=== PATIENT | male | born 1945 | race Caucasian/White ===

== ENCOUNTER → 2020-01-13 08:20 | Outpatient (CLI) | payer MEDICARE, OTHER, SELFPAY ==
[2020-01-14 21:05] LABS: COVID19 Sendout Not Detected (Not Detect)
== END ==
PROVIDERS: Visit Provider Nurse Practitioner
DX: Z01.812 Encounter for preprocedural laboratory examination (principal)
CPT/HCPCS: 87635

== ENCOUNTER 2020-01-16 11:18 | Inpatient (IN) | payer MEDICARE, OTHER, SELFPAY ==
[2020-01-11 10:00] VITALS: BMI 25.4
[2020-01-16] VITALS (15 sets, daily range): BP systolic 92–130; BP diastolic 52–80; PULSE 71–84; RESP 10–20; TEMP 36.3–36.6; O2SAT 90–97; BMI 25.4; BMI 25.3
--- NOTE | 2020-01-16 | PATH_ITS ---
[facility] Accession Number: [id number] . 01 Material submitted: . PART A: lymph node - RIGHT PELVIC LYMPH NODE PART B: lymph node - LEFT PELVIC LYMPH NODE PART C: prostate - PROSTATE WITH ATTACHED SEMINAL VESICLES . 02 Diagnosis: A. Right Pelvic Lymph Nodes, Excision: Seven lymph nodes negative for carcinoma. . B. Left Pelvic Lymph Nodes, Excision: Three lymph nodes negative for carcinoma. . C. Prostate with Attached Seminal Vesicles, Radical Prostatectomy: Prostatic adenocarcinoma; see cancer case summary. . CANCER CASE SUMMARY - PROSTATE GLAND Procedure: Radical prostatectomy. Prostate size: Weight: 34 grams. Size: 4.0 x 3.5 x 3.3 cm. Histologic type: Acinar adenocarcinoma. Histologic grade: Grade group 1 (Isatu score 3+3=6). Tumor quantitation: Estimated percentage of prostate involved by tumor: 5%. Tumor size (dominant nodule): 18 mm. Extraprostatic extension: Not identified. Urinary bladder neck invasion: Not identified. Seminal vesicle invasion: Not identified. Lymphovascular invasion: Not identified. Perineural invasion: Present. Margins: Uninvolved by invasive carcinoma. Treatment effect: No known presurgical therapy. Regional lymph nodes: Number of lymph nodes involved: 0. Number of lymph nodes exmained: 10. Pathologic stage classification (pTNM, AJCC 8th Edition): Primary tumor: pT2 Regional lymph nodes: pN0. Additional pathologic findings: High-grade prostatic intraepithelial neoplasia (PIN). [facility] 01/20/2020 1516 Local . 02 Electronically signed: . Alfonso Gibson MD, PhD, Pathologist NPI- [id number] . 01 Gross description: . Specimen A is received in formalin, labeled with patient identification and R pelvic lymph node. It consists of a yellow-guajardo and lobulated soft tissue piece measuring 4.0 x 4.0 x 2.2 cm. There are 12 lymph node candidates ranging from 0.4 to 1.7 cm in greatest dimension. The entire lymph node candidates are submitted in five cassettes. . Summary of sections: A1-A2 - four intact lymph node candidates in each, four pieces. A3 - two intact lymph node candidates, two pieces. A4-A5 - one sectioned lymph node candidate in each, four pieces each. . Specimen B is received in formalin, labeled with patient identification and L pelvic lymph node. It consists of a 4.0 x 2.0 x 1.7 cm yellow-guajardo and lobulated soft tissue piece. There are four lymph node candidates ranging from 1.0 to 3.3 cm in greatest dimension. The entire lymph node candidates are submitted in five cassettes. . Summary of sections: B1 - two intact lymph node candidates, two pieces. B2-B4 - one sectioned lymph node candidate, together, two pieces in B2 and B3, three pieces in B4. B5- one sectioned lymph node candidate, four pieces. . Specimen C is received in formalin, labeled with patient identification and prostate with attached seminal vesicles. It consists of a 34-gram prostate (4.0 cm from left to right, 3.5 cm from anterior to posterior, and 3.3 cm from superior to inferior) with bilateral seminal vesicles (left: 2.5 x 1.0 x 0.5 cm; right: 3.2 x 1.0 x 0.9 cm) and bilateral vasa deferentia (ranging from 2.5 to 3.0 cm in length and 0.6 cm in average diameter). The capsule is yellow-guajardo and distorted. The specimen is inked as follows: anterior midline-orange, posterior midline-yellow, right-black, left-blue. After removal of the distal and proximal prostatic urethral margins. The prostate is sectioned into seven slices from the apex to base. The cutting surface is diffuse yellow-guajardo spongy and nodular. A 0.8 x 0.6 x 0.4 cm cavity with multiple black and irregular calculi is present on the right/posterior aspect, involving on slides 5 and 6. No discrete masses are identified grossly. The prostate gland is entirely submitted. The entire prostate and medical detail representative sections of seminal vessicles are submitted in 30 cassettes. . Summary of sections: C1 - right seminal vesicle and vas deferens, two pieces. C2 - left seminal vesicle and vas deferens, two pieces. C3 - right apex margin, three pieces. C4 - left apex margin, three pieces. C5 - right base margin, four pieces. C6 - left base margin, three pieces. C7-C10 - full-thickness prostate of slices 1 and 2, bisected, one piece each. C11-C30 - full-thickness prostate sections of slices 3 to 7, quadrisected each slice, one piece each. (TN:[id number]) /MRV 01/20/2020 [facility] Local . 02 Pathologist provided ICD-10: C61 . 02 CPT . 153345, [id number], [id number] Performed at: 01 [facility] [address] [facility], [place], [place] [id number] MD Ed Veliz MD Phone: [phone] Performed at: 02 [facility] [place] [address] [place], [place] [id number] MD Lisa Zurita MD Phone: [phone]
[2020-01-16 12:13] LABS: Hematocrit 35.7 % (41-53); Hemoglobin 12.2 g/dL (13.5-17.5); Mean Corpuscular HGB Conc 34.1 % (30-36); Mean Corpuscular Hemoglobin 31.9 PG (26-34); Mean Corpuscular Volume 93.7 fL (80-100); Platelet Count 162 X10^3/uL (150-400); Red Blood Cell Count 3.81 X10^6/uL (4.5-5.9); Red Cell Distribution Width 13.2 % (11.6-14.8); White Blood Cell Count 3.3 X10^3/uL (4.5-11.0)
[2020-01-16] MEDS: LACTATED RINGERS 1,000 ML 42 ML IV ×2 (12:15→15:01)
--- NOTE | 2020-01-16 12:41 | PM.PREOP ---
Pre-operative Note Interval Note History & Physical reviewed/Exam performed by Physician: Yes Changes to H&P: No
[2020-01-16] MEDS: CEFAZOLIN 2 GM/100 ML FROZ.PIGGY IV ×2 (13:00→17:45)
[2020-01-16] MEDS: ACETAMINOPHEN IV 1,000 MG/100 ML VIAL 400 MG IV (13:30)
--- NOTE | 2020-01-16 13:59 | SUR.OPER ---
Supine on padded OR bed, head on pillow, arms secured on padded arm boards at <90 degrees abduction, legs uncrossed, safety belt at thigh, tape over blanket over lower legs.
[2020-01-16] MEDS: BUPIVACAINE LIPOSOME 266 MG/20 ML VIAL INJ (14:10)
[2020-01-16] MEDS: SODIUM CHLORIDE 0.9% FLUSH 10 ML IV (15:13)
--- NOTE | 2020-01-16 15:30 | P.OP_ITS ---
Operative Date/Time/Diagnoses Date of procedure: 01/16/20 Time of procedure: 15:31 Pre-op diagnosis: Carcinoma of the prostate Post-op diagnosis: same Procedure & Clinicians Procedure: Radical retropubic prostatectomy and bilateral pelvic lymphadenectomy Same procedure as scheduled: Yes Indications: Adenocarcinoma the prostate Surgeon: Michoacano Garcia [employer] Operator: Sarah Welsh Click Yes if Unassisted: No Anesthesia Type: General, Spinal (Duramorph spinal) and Local (1.33% Exparel) Operative Notes Findings: Normal tissue planes. Lymph node packets grossly normal. No physical or palpable evidence of extracapsular extension. Closure Type: primary Specimen(s): other (1. Right pelvic lymph nodes 2. left pelvic lymph nodes. 3. Prostate with attached seminal vesicles.) Applied: catheter (18. Togolese Osorio) and drain(s) Estimated Blood Loss (mL): 200 Blood products transfused: none Tourniquet time (min): 0 Procedure in detail: Patient was positioned supine and was administered general anesthesia after successful placement of Duramorph spinal. The abdomen genitalia and groin were then prepped and draped in sterile fashion. A midline infraumbilical incision was then conducted with sharp cautery and blunt technique. The extraperitoneal pelvic space was entered and the anterior lateral pelvic sidewalls were cleared and exposed using blunt technique. Bilateral pelvic lymph node dissection was then conducted using the same steps a maneuvers as follows: The abdomen tissue over the external iliac vein was divided along its length using blunt and cautery technique care was taken to identify the obturator nerve artery and vein during the dissection. The boundaries of the aleja packet were then established and were dissected from its fossa using blunt and cautery technique with the LigaSure Impact device. Each, the right and the left pelvic lymph node packet were then handed off the field, labeled as to the side of procurement and submitted to pathology for routine gross and microscopic examination. The endopelvic fascia was then divided on either side of the prostate. The puboprostatic ligaments were identified and these were divided using the LigaSure Impact device. Meticulous incisions were made in the fascia overlying the lateral surface of the prostate, longitudinally. This fascial envelope was then gently rolled posteriorly using blunt technique in an attempt to preserve the cavernous nerves. Next, the dorsal venous complex was ligated using the LigaSure Impact device. Hemostasis was satisfactory. The urethra was then identified between the prostatic apex and the pelvic floor. The urethra was then carefully isolated using blunt technique and was divided sharply just distal to the prostatic apex. The Osorio catheter was then brought into the operative space and the rectal urethralis attachments were carefully divided using blunt and cautery technique. A plane was then developed between the posterior prostate and the rectal wall anteriorly. The posterior lateral vascular pedicles of the prostate were then carefully isolated successively using plastic hemo lock clips were necessary with sharp division. Now with the prostate and seminal vesicles elevated and rotated superiorly and anteriorly the seminal vesicles and ampulla of the vas deferens were visualized and accessed. Denonvies fascia was then divided horizontally. The ampulla of the vas was isolated on each side, large hemoclips were applied, and were transected. The seminal vesicles were then dissected from the fossa using blunt technique and application of medium hemo lock clips were indicated for for hemostasis and sharp division. A plane was then developed between the bladder neck and prostatic base using blunt and cautery technique. The mucosa of the bladder neck was then divided. The mucosa of the bladder was then effaced circumferentially with interrupted 4 0 Monocryl suture creating a neobladder neck. The Nick sound was then passed into the urethra and positioned at the exposed portion of the urethra above the pelvic floor. Using 2 0 Monocryl suture, interrupted anastomotic sutures were placed at the 2, 4, 6, 10, positions. The same sutures were then brought through the neobladder neck at the same locations. An 18 Togolese silicone Osorio catheter was then advanced through the penile meatus into the operative field and then advanced into the bladder via the neobladder neck. The balloon was then inflated to 15 cc. Gentle traction was then applied to the catheter and the anastomotic sutures were then tied down successively, thus completing the vesicourethral anastomosis. The Osorio catheter was then irrigated clear and placed to gravity drainage. A 15 Togolese Anmol drain was then brought through the abdominal wall through a separate stab incision to the right of the midline incision. A diluted solution of Exparel was then utilized to infiltrate the drain site, the midline abdominal fascia, and the midline abdominal skin. The fascia was then closed with running 0 PDS. The subcutaneous layer was reapproximated using 2 0 Vicryl in a running fashion. Finally the skin was reapproximated using a running subcuticular 4 0 M onocryl. The incision line in the drain site were then dressed with tailored Telfa and op site dressing. The Anmol drain was then placed to bulb self suction. The patient was then awakened, transferred to [facility], and transferred to recovery in stable condition. Complications: none Post-operative Condition: stable Disposition: PACU Plan for aftercare: Acute Care
[2020-01-16 16:10] LABS: Bacteria Urine None Seen; WBC Urine None Seen (0-5/HPF)
[2020-01-16 16:12] LABS: Appearance Urine UA CLEAR; Bilirubin Urine UA NEGATIVE (NEGATIVE); Color Urine UA YELLOW; Glucose Urine UA NEGATIVE (Negative); Ketones Urine UA 1+ (NEGATIVE); Leukocyte Esterase Urine UA NEGATIVE (NEGATIVE); Nitrite Urine UA NEGATIVE (Negative); Occult Blood Urine UA 1+ (Negative); Protein Urine UA NEGATIVE (Negative); Specific Gravity Urine UA 1.025 (1.000-1.035); Urobilinogen Urine UA 0.2 E.U./dL (0.2)
[2020-01-16 16:17] LABS: Culture Indicated Urine Cult Not Indicated; Mucus Urine 2+ (Negative); RBC Urine 1-5/HPF (0-5/HPF)
[2020-01-16] MEDS: LACTATED RINGERS 1,000 ML 125 ML IV (17:44)
[2020-01-16 17:48] LABS: Hematocrit 32.6 % (41-53); Hemoglobin 11.2 g/dL (13.5-17.5)
[2020-01-16] MEDS: diphenhydrAMINE 25 MG TABLET PO (21:02)
[2020-01-16] MEDS: ACETAMINOPHEN 325 MG TABLET PO (21:02)
[2020-01-17] VITALS (8 sets, daily range): BP systolic 105–125; BP diastolic 56–69; PULSE 67–78; RESP 15–18; TEMP 36–37.2; O2SAT 96–100
[2020-01-17] MEDS: LACTATED RINGERS 1,000 ML 125 ML IV (02:40)
--- NOTE | 2020-01-17 07:40 | P.PN_ITS ---
Subjective Subjective Date Patient Seen: 01/17/20 Time Patient Seen: 07:40 Interval history: He reports and overall uneventful night without complaint. He denies pain, nausea, or vomiting. He tolerated a general diet for dinner. Exam Vital Signs (past 8 hours): - 01/17/20 00:22 01/17/20 04:20 01/17/20 07:20 Temperature 97.6 F 97.6 F Pulse Rate 67 68 68 Respiratory Rate 18 18 18 Blood Pressure 109/65 105/56 L Pulse Oximetry 97 97 97 Oxygen Delivery Method Room Air Oxygen Flow Rate 0 Narrative Exam Narrative: He is awake, alert, sitting upright in bed and in no distress. Chest-equal and nonlabored expansion bilaterally. Abdomen-bowel sounds are active. Nondistended. Dressing and drain intact. Scant serosanguineous SHANDA drainage. Genitalia-no ecchymosis or edema. Osorio indwelling with clear outflow. Extremities-SCDs in place. No pallor edema or cyanosis appreciated. Objective Labs Result Diagrams: 01/16/20 17:33 Labs: Laboratory Results - last 24 hr 01/16/20 01/16/20 01/16/20 12:10 12:10 14:18 WBC 3.3 L RBC 3.81 L Hgb 12.2 L Hct 35.7 L MCV 93.7 MCH 31.9 MCHC 34.1 RDW 13.2 Plt Count 162 Urine Color Yellow Urine Appearance Clear Urine pH 6.0 Ur Specific [place] 1.025 Urine Protein Negative Urine Glucose (UA) Negative Urine Ketones 1+ H Urine Occult Blood 1+ H Urine Nitrate Negative Urine Bilirubin Negative Urine Urobilinogen 0.2 Ur Leukocyte Esterase Negative Urine RBC 1-5/hpf Urine WBC None seen Urine Bacteria None seen Urine Mucus 2+ H Ur Culture Indicated? Cult not indicated Blood Type A Positive Antibody Screen Negative 01/16/20 17:33 WBC RBC Hgb 11.2 L Hct 32.6 L MCV MCH MCHC RDW Plt Count Urine Color Urine Appearance Urine pH Ur Specific [place] Urine Protein Urine Glucose (UA) Urine Ketones Urine Occult Blood Urine Nitrate Urine Bilirubin Urine Urobilinogen Ur Leukocyte Esterase Urine RBC Urine WBC Urine Bacteria Urine Mucus Ur Culture Indicated? Blood Type Antibody Screen Assessment & Plan Assessment & Plan narrative: Assessment: 1. Stable postoperative day 1. Status post radical prostatectomy. Plan: 1. Increase diet and activity today. 2. Pathology pending. 3. Begin catheter care and use instruction.
[2020-01-17] MEDS: lisinopriL 20 MG TABLET PO (09:22)
[2020-01-17] MEDS: PRAVASTATIN 20 MG TABLET 80 MG PO (09:22)
[2020-01-17] MEDS: ENOXAPARIN 30 MG/0.3 ML SYRINGE SUBCUT (09:23)
--- NOTE | 2020-01-17 09:50 | PC.NURSE ---
Addendum entered by Esthela Hernandez R.N. 01/17/20 12:09: Patient ambulated in the halls. He tried to have a bowel movement but was not successful. Will give him a suppository after lunch time if he is agreeable. Original Note: Assess-Patient is A&Ox3. He denies pain or discomfort. He has two small bandages with lap sites that are both dry, one has a small amount of ss drainage. SHANDA drain to r.mid/lower abdomen with some ss drainage. Osorio catheter putting out pale yellow urine. Patient just ambulated in the halls and is resting in the chair. Dr. Garcia has ordered dulcolax suppositories for patient. He would like to wait for a couple of hours to see if he can have a bowl movemnt. Will given suppository around 1200 if unable to go.
[2020-01-17] MEDS: BISACODYL 10 MG SUPP PR (13:20)
[2020-01-17] MEDS: ACETAMINOPHEN 325 MG TABLET 650 MG PO (18:41)
[2020-01-17] MEDS: ACETAMINOPHEN 325 MG TABLET PO (21:09)
[2020-01-17] MEDS: diphenhydrAMINE 25 MG TABLET PO (21:10)
[2020-01-18 04:10] VITALS: BP 134/73; PULSE 72; RESP 16; TEMP 36.4; O2SAT 98
[2020-01-18 07:55] VITALS: BP 139/72; PULSE 74; RESP 14; TEMP 37.1; O2SAT 96
--- NOTE | 2020-01-18 08:09 | PM.DS.1 ---
History of Present Illness History of Present Illness Date Patient Seen: 01/18/20 Time Patient Seen: 08:09 Chief complaint: [id number] Discharge Providers Provider Date of admission: 01/16/20 11:18 Discharge Date: 01/18/20 Primary care physician: Clinton Tsai MD Discharge provider: Michoacano Garcia MD Summary Hospital Course Discharge Diagnosis: Adenocarcinoma of the prostate Hospital Course: The patient was admitted on the morning of 01/16/2020 and underwent uncomplicated radical retropubic prostatectomy and bilateral pelvic lymphadenectomy under general and Duramorph spinal anesthesia. Postoperative course was unremarkable net he tolerated general diet the evening same day of surgery. Pain control was excellent. He was able to ambulate without assistance beginning early in the 1st postoperative morning. On the morning of 01/18/2020 the patient was stable for discharge. He was provided routine instruction for catheter care and use, activity, hygiene, and driving instructions/restrictions. Discharge prescriptions were explained regarding indications for use, common side effects, precautions, and intake or administration instructions. A postoperative visit will be scheduled for catheter removal on the morning of 01/27/2020. A postoperative appointment with PSA PVR and wound check will be arranged in 6-8 weeks. Pathology is pending at discharge. Status at Discharge Cognitive/behavioral status at discharge: oriented Functional status at discharge: independent ambulation Overall status at discharge: patient is back to baseline Exam Vital Signs (past 8 hours): - 01/18/20 04:10 Temperature 97.5 F L Pulse Rate 72 Respiratory Rate 16 Blood Pressure 134/73 Pulse Oximetry 98 Oxygen Delivery Method Room Air Oxygen Flow Rate 0 Objective Labs Result Diagrams: 01/16/20 17:33 Discharge Plan Discharge Plan Patient Disposition: Home Discharge comment: Call Urology office to schedule postop visit in 6-8 weeks with PSA and PVR. Discharge orders & Medications Prescriptions: New enoxaparin [Lovenox] 30 mg/0.3 mL Syringe 30 mg SUBCUT DAILY Qty: 30 RF: 0 oxycodone 5 mg tablet 5 mg PO Q4H PRN (Reason: pain) Qty: 20 RF: 0 ciprofloxacin HCl 250 mg tablet 250 mg PO Q12H Qty: 6 RF: 0 Continued diphenhydramine-acetaminophen [Acetaminophen PM] 25-500 mg Tablet 1 tab PO BEDTIME RF: 0 pravastatin 80 mg tablet 80 mg PO DAILY RF: 0 lisinopril 20 mg tablet 20 mg PO DAILY RF: 0 Follow up/Referrals: Michoacano Garcia MD [Physician] - Clinton Tsai MD [Primary Care Provider] - Diet/Activity/Treatments Diet: Diet as Tolerated Catheter: 2-way Osorio Catheter comment: Will remove in Urology Office on 01/27/2020- call for appointment Skin/Wound/Dressing Care Report to your healthcare provider any signs of infection, such as:: chills, fever, night sweats, increased pain, unusual drainage and unusual redness Other wound treatment: May shower. Leave incision open to air. Pat dry with clean towel after showering. Visit Report/Discharge Packet Instructions: DI for Radical Prostatectomy, DI for Prescription Opioid Use Stand Alone Forms: Surgery Discharge Discharge Data Primary Care Provider: Clinton Tsai
[2020-01-18] MEDS: PRAVASTATIN 20 MG TABLET 80 MG PO (08:38)
[2020-01-18] MEDS: lisinopriL 20 MG TABLET PO (08:38)
--- NOTE | 2020-01-18 09:20 | CM.DANOTE ---
DCP: Case received, EMR reviewed and met with patient. Introduced self and role. Was able to meet with patient and obtain information regarding patient's baseline activity level prior to hospitalization. DCP assessment completed with information currently available. Patient is a 74 year old male who admitted on 01/15, to the care of the hospitalist/urologist team. PCP: Dr. Tsai. Payer: confirmed: Medicare/[facility]. Patient came to the hospital for a surgical procedure. He had a retropubic prostectomy. Met with patient in his room. He is alert and oriented, and was sitting up in his chair by his bed. He is independent with mobility, and resides in [place] with his spouse, Magdalena. He is to be discharged home today with his catheter, and will follow up at urology office, with removal on 01/26. P: Patient is to be discharged home today. Trinity Nelson RN/[employer]
--- NOTE | 2020-01-18 10:38 | PC.NURSE ---
Patient will be discharging home today. Will do leg bag teaching and also take out his SHANDA drain. will be here and we will also do some lovenox teaching as he will be going home with this. Osorio is patent with clear yellow urine. Patient denies pain and has had a small bowel movement. He is sitting up in his chair and has already ambulated in the halls.
[2020-01-18] MEDS: ENOXAPARIN 30 MG/0.3 ML SYRINGE SUBCUT (10:48)
== END 2020-01-18 11:45 | disposition home or self-care (01) | DRG 708 ==
PROVIDERS: Admitting Provider Specialist; PCP Family Medicine; Referring Provider Specialist; Visit Provider Specialist
PROC: 0VT00ZZ Resection of Prostate, Open Approach (ICD-10-PCS; principal; 2020-01-16 12:30)
DX: C61 Malignant neoplasm of prostate (principal); Z01.812 Encounter for preprocedural laboratory examination; Z11.59 Encounter for screening for other viral diseases
CPT/HCPCS: 36415; 55845; 81001; 85014; 85018; 85027; 86850; 86900; 86901; 87635; 94762; C9290; J0131; J0690; J1100; J1650; J2250; J2274; J2405; J2704; J3010

== ENCOUNTER → 2024-02-05 08:12 | Outpatient (CLI) | payer MEDICARE, OTHER, SELFPAY ==
[2021-07-31 10:02] VITALS: BMI 25.3
== END ==
PROVIDERS: PCP Family Medicine; Visit Provider Urology
DX: N39.46 Mixed incontinence (principal); R39.9 Unspecified symptoms and signs involving the genitourinary system; Z85.46 Personal history of malignant neoplasm of prostate
CPT/HCPCS: 51798; 81002; 87077; 87086; 87186; 99213

== ENCOUNTER → 2025-02-08 08:35 | Outpatient (CLI) | payer MEDICARE, OTHER, SELFPAY ==
[2021-07-31 10:02] VITALS: BMI 25.3
== END ==
PROVIDERS: PCP Family Medicine; Visit Provider Urology
DX: N39.46 Mixed incontinence (principal)
CPT/HCPCS: 87077; 87086; 87186